=== PATIENT | female | born 2000 | race Caucasian/White ===

== ENCOUNTER 2020-01-17 12:51 | Outpatient (CLI) | payer SELFPAY ==
[2020-01-17 15:05] LABS: HEMATOCRIT 33.8 % (36.0-48.0); HEMOGLOBIN 11.2 g/dL (12-16); MCH 31.3 pg (26.0-34.0); MCHC 33.1 g/dL (31.0-37.0); MCV 94.4 fL (80.0-100.0); PLATELET COUNT 199 10x3/uL (130-400); RBC 3.58 10x6/uL (4.00-5.40); RDW 13.7 % (11.5-14.5)
[2020-01-17 15:06] LABS: WBC 1.6 10x3/uL (4.8-10.8)
[2020-01-17 15:09] LABS: CALC OSMOLALITY 271 mosm/kg (275-300); CALCIUM 8.8 mg/dL (8.5-10.1); CARBON DIOXIDE 23.7 mmol/L (21.0-32.0); CHLORIDE - SERUM 105 mmol/L (98-107); CREATININE - SERUM 0.6 mg/dL (0.6-1.3); GLUCOSE 75 mg/dL (74-106); POTASSIUM - SERUM 3.8 mmol/L (3.5-5.1); SODIUM 138 mmol/L (136-145); UREA NITROGEN 4 mg/dL (7-18); eGFR NON AFRICAN AMERICAN > 90 mL/min (90-120)
[2020-01-17 15:17] LABS: ALBUMIN 2.8 g/dL (3.4-5.0); ALKALINE PHOSPHATASE 105 U/L (30-120); ALT (SGPT) 21 U/L (10-68); BILIRUBIN - DIRECT 0.08 mg/dL (0.00-0.30); BILIRUBIN - INDIRECT 0.13 mg/dL (0.00-1.00); BILIRUBIN - TOTAL 0.21 mg/dL (0.2-1.3); PROTEIN - SERUM 7.2 g/dL (6.4-8.2); URIC ACID 3.7 mg/dL (2.6-7.2)
[2020-01-17 15:53] LABS: EOSINOPHILS 5 % (0-7); LYMPHOCYTES 64 % (15-50); MONOCYTES 6 % (2-11); NEUTROPHILS 26 % (40-80); PLATELET ESTIMATE NORMAL
== END 2020-01-17 15:30 | disposition home or self-care (01) ==
LOC: D.LDO 12:51
PROVIDERS: ATTEND Obstetrics & Gynecology
DX: O26.893 Other specified pregnancy related conditions, third trimester (principal); Z3A.31 31 weeks gestation of pregnancy; R03.0 Elevated blood-pressure reading, without diagnosis of hypertension

== ENCOUNTER 2020-03-19 19:43 | Inpatient (IN) | payer MEDICAID ==
[~2020-03-19] VITALS: Ht 165.1 cm; Wt 114.3 kg
[2020-03-19 20:04] VITALS: BP 120/72; BMI 42.0
[2020-03-19 20:25] LABS: HEMATOCRIT 34.7 % (36.0-48.0); HEMOGLOBIN 11.8 g/dL (12-16); MCH 31.6 pg (26.0-34.0); MCV 92.8 fL (80.0-100.0); MEAN PLATELET VOLUME 11.6 fL (7.4-10.4); RBC 3.74 10x6/uL (4.00-5.40); RDW 13.2 % (11.5-14.5); WBC 2.3 10x3/uL (4.8-10.8)
[2020-03-19 20:55] LABS: BILIRUBIN NEGATIVE (NEGATIVE); KETONE NEGATIVE (NEGATIVE); NITRITE NEGATIVE (NEGATIVE); UROBILINOGEN NORMAL (NORMAL)
[2020-03-19 22:33] LABS: UDS - AMPHET NEGATIVE QUAL (NEGATIVE); UDS - BARB NEGATIVE QUAL (NEGATIVE); UDS - COCAINE NEGATIVE QUAL (NEGATIVE); UDS - OPIATE NEGATIVE QUAL (NEGATIVE); UDS - PCP NEGATIVE QUAL (NEGATIVE); UDS - THC POSITIVE QUAL (NEGATIVE)
[2020-03-19 22:36] LABS: UDS - BENZO NEGATIVE QUAL (NEGATIVE)
[2020-03-20] VITALS (8 sets, daily range): BP systolic 101–121; BP diastolic 46–67
--- NOTE | 2020-03-20 19:26 | NUR ---
RECEIVED PT VIA BED FROM RR, PT TO ROOM 1223, IV IN LEFT HAND INTACT WITH NO REDNESS OR EDEMA, NS WITH PITOCIN TO PUMP INFUSING AT 1258 ML/HR PER MD ORDERS, SEE TYREE, FF, ML, U/1, LITE TO MOD BLEEDING NOTED WITH NO CLOTS, WHITE CHUX AND VINNY PAD CHANGED, BIKINI LINE INC WITH SMALL PRIMAPORE DRESSING CDI WITH NO DRAINAGE NOTED, ICE PACK TO INC, ARAUJO CATH INTACT DRAINING DARK YELLOW URINE, EMPTIED 800 MLS FROM ARAUJO, SCD'S APPLIED AND WORKING PROPERLY, PT RATES PAIN 7/10, WILL ADM PAIN MED, PT ORIENTED TO ROOM, BED IN LOW POSITION, SIDE RAIL X 2, CALL LIGHT IN REACH, INFANT TO ROOM VIA OPEN CRIB CART PER NSY NURSE
--- NOTE | 2020-03-20 20:03 | NUR ---
ADM LIANNE MENDOZA PER MD ORDERS, SEE EMAR
--- NOTE | 2020-03-20 20:10 | NUR ---
PT REQUESTED AND SERVED LEMON [place] SODA AND CHICKEN BROTH
--- NOTE | 2020-03-20 21:30 | NUR ---
PT RESTING, AROUSES TO OPENING OF DOOR, LITE BLEEDING NOTED WITH NO CLOTS, VINNY PAD CHANGED, PT REQUESTED AND SERVED FRESH LEMON [place] SODA, DENIES FURTHER NEEDS
--- NOTE | 2020-03-20 22:35 | NUR ---
PT RESTING, AROUSES TO OPENING OF DOOR, EMPTIED 175 MLS OF DARK YELLOW URINE FROM ARAUJO CHAMBER TO ARAUJO BAG, PT INFORMED WHEN PAIN MEDICINE WAS DUE, PT VERBALIZES UNDERSTANDING, STATES "I'M JUST GRIS SORE, BUT, IT'S STARTING TO HURT JUST A LITTLE", PT DENIES NEEDS AT THIS TIME, SCD'S CONTINUE ON AND WORKING PROPERLY
--- NOTE | 2020-03-20 23:30 | NUR ---
LAST SET OF VS OBTAINED, INFORMED PT THAT I WILL BE BACK IN AROUND MIDNIGHT TO ADM PAIN MED AND DO VINNY CARE, PT VERBALIZES UNDERSTANDING, DENIES NEEDS AT THIS TIME
--- NOTE | 2020-03-21 | NUR ---
INFANT TO THE Y
--- NOTE | 2020-03-21 00:12 | NUR ---
PT AWAKE, VINNY CARE DONE WITH WET WARM WASH CLOTHS, LITE BLEEDING NOTED WITH NO CLOTS, WHITE CHUX AND VINNY PAD CHANGED, EMPTIED 350 MLS FROM ARAUJO, PT DID I.S. WITH GOOD EFFORT, ADM LIANNE MENDOZA PER MD ORDERS, SEE ORDERS, PT INST TO DRINK PLENTY OF FLUIDS, FRESH H20 SERVED, SCD'S CONTINUE ON AND WORKING PROPERLY, PT DENIES NEEDS, PT'S MOM BACK TO ROOM
--- NOTE | 2020-03-21 00:20 | NUR ---
INFANT TO ROOM WITH MOM AND GRANDMOTHER, ID BAND VERIFIED, NO PROBLEMS NOTED.
--- NOTE | 2020-03-21 00:56 | NUR ---
PT AWAKE, ADM TORADOL SIVP PER MD ORDERS, SEE EMAR, PT INST TO DRINK PLENTY OF FLUIDS, PT VERBALIZES UNDERSTANDING, DENIES NEEDS AT THIS TIME, INFANT IN OPEN CRIB CART AND PT'S MOM ASLEEP AT BEDSIDE
--- NOTE | 2020-03-21 02:00 | NUR ---
PT AWAKE, HOLDING INFANT, REPORTS PAIN IS "BETTER", RATES 3/10, DENIES NEEDS, PT'S MOM AT BEDSIDE
[2020-03-21 04:15] VITALS: BP 90/52
--- NOTE | 2020-03-21 04:15 | NUR ---
PT AWAKE, VS OBTAINED, I&O'S COLLECTED, PT CLEANED UP WITH WET WARM WASH CLOTHS, WHITE CHUX AND VINNY PAD CHANGED, LITE BLEEDING WITH ONE 1/2 DOLLAR SIZE CLOT, FF, ML, U/1, FRESH ICE PACK TO ABD, PT C/O INC PAIN, INFORMED PT THAT I WILL START PO PAIN MED, PT VERBALIZES UNDERSTANDING, SCD'S CONTINUE ON AND WORKING PROPERLY, PT'S MOM AT BEDSIDE HOLDING INFANT AT THIS TIME
--- NOTE | 2020-03-21 04:30 | NUR ---
ADM PERCOCET PO PER MD ORDERS, SEE EMAR, REQUESTED AND SERVED GINA, DENIES FURTHER NEEDS AT THIS TIME
--- NOTE | 2020-03-21 06:12 | NUR ---
PT HOLDING INFANT, RATES PAIN 12/20, STATES "I'M NOT SURE IF IT'S ANY BETTER", INFORMED PT THAT THE TORADOL WILL BE DUE AROUND 7AM AND THAT THE PERCOCET WILL BE DUE AROUND 8:30, PT VERBALIZES UNDERSTANDING, DENIES NEEDS AT THIS TIME, PT'S MOM AT BEDSIDE
--- NOTE | 2020-03-21 06:40 | NUR ---
DR NICHOLSON ON UNIT, ORDERS TO SALINE LOCK IV, REMOVE ARAUJO, MAY SHOWER, REGULAR DIET, AND AMBULATE
[2020-03-21 06:46] LABS: HEMATOCRIT 29.6 % (36.0-48.0); HEMOGLOBIN 9.7 g/dL (12-16); MCH 30.5 pg (26.0-34.0); MCHC 32.8 g/dL (31.0-37.0); MCV 93.1 fL (80.0-100.0); MEAN PLATELET VOLUME 11.4 fL (7.4-10.4); RBC 3.18 10x6/uL (4.00-5.40); RDW 13.2 % (11.5-14.5)
--- NOTE | 2020-03-21 06:59 | NUR ---
IV FINISHED INFUSING, IV CONVERTED TO SALINE LOCK, PT'S MOM REPORTS THAT PT FEELS "WARM", TEMP OBTAINED, SEE FLOW SHEET, RENITA MARTIN RN WILL NOTIFY DR NICHOLSON
--- NOTE | 2020-03-21 07:05 | NUR ---
REPORT RECEIVED FROM Derik ROWLAND RN.
--- NOTE | 2020-03-21 07:06 | NUR ---
DR NICHOLSON ON UNIT, REPORT OF PT'S TEMP, ORDERS TO RECHECK TEMP IN 2 HOURS, AMB, AND CONTINUE I.S.
[2020-03-21 07:16] LABS: RAPID PLASMA REAGIN Non Reactive (Non Reactive)
[2020-03-21 07:17] LABS: WBC 1.9 10x3/uL (4.8-10.8)
[2020-03-21 08:00] VITALS: BP 118/64
--- NOTE | 2020-03-21 08:35 | NUR ---
PT REQUEST PAIN MEDICATION. PRN PO MED AND SCHEDULED TORADOL GIVEN. ARAUJO CATHETER D/C'D. ENCOURAGED PT TO CONTINUE TO USE INCENTIVE SPIROMETER 1-2X PER HOUR, 3-5 BREATHS EACH SESSION. PLANT TO GET PT UP TO SHOWER AFTER PAIN MEDS TAKE EFFECT.
--- NOTE | 2020-03-21 09:01 | NUR ---
DR. NICHOLSON NOTIFIED OF TEMP. ORDERS RECEIVED.
--- NOTE | 2020-03-21 10:39 | NUR ---
IVAB INFUSED. IV FLUSHED WITHOUT DIFFICULTY AND SALINE LOCKED. VINNY CARE DONE; PAD CHANGED. NON-SKID SOCKS PLACED. PT STOOD AT SIDE OF BED. NO DIZZINESS OR LIGHTHEADEDNESS NOTED. STATES DOES NOT NEED TO VOID AT THIS TIME. AMBULATED IN ROOM WITHOUT DIFFICULTY. PT SITTING UP IN CHAIR AT BEDSIDE WITH INFANT IN OPEN CRIB, SLEEPING. CALL LIGHT IN REACH. PT STATES SHE WOULD LIKE TO WAIT UNTIL HER MOTHER GETS HERE TO SHOWER. NO OTHER NEEDS OR CONCERNS VOICED AT THIS TIME.
--- NOTE | 2020-03-21 11:34 | NUR ---
PT UP TO BATHROOM. VOIDED WITHOUT DIFFICULTY; HAT WAS NOT IN TOILLET, SO VOID WAS NOT MEASURED. PT STATES SHE HAD NO DIFFICULTY EMPTYING HER BLADDER. HAT IN PLACE TO MEASURE NEXT VOIDS. VINNY CARE DONE; PANTIES AND PAD IN PLACE.
--- NOTE | 2020-03-21 13:30 | NUR ---
PT UP TO SHOWER. MOTHER AT BEDSIDE.
--- NOTE | 2020-03-21 13:50 | NUR ---
PT OUT OF SHOWER. IV SITE WET (WAS COVERED WITH GLOVE AND TAPED), CATHETER UNSECURED. ATTEMTPED TO FLUSH SITE; SITE INFILITRATED. IV D/C'D. PRESSURE AND BANDAGE APPLIED.
[2020-03-21 14:31] VITALS: BP 114/69
--- NOTE | 2020-03-21 14:34 | NUR ---
PT REQUESTS PAIN MED. PAIN MED GIVEN. PT STATES SHE IS COLD. EXTRA BLANKET GIVEN.
[2020-03-21 16:25] VITALS: BP 112/61
--- NOTE | 2020-03-21 16:25 | NUR ---
TO ROOM FOR VS. PT SLEEPING; AWAKENS EASILY TO VOICE/NAME. PT STATES PERCOCET 'JUST MAKES ME LOOPY. IT DOESN'T HELP THE PAIN AT ALL'. TEMP AND PULSE ELEVATED.
--- NOTE | 2020-03-21 16:29 | NUR ---
DR NICHOLSON NOTIFIED OF PT TEMP OF 103.1. STATES HE WILL ORDER UA AND CHEST XRAY, AND TO CONTINUE ANTIBIOTICS ORDERED.
--- NOTE | 2020-03-21 16:55 | NUR ---
PT UP TO BR TO VOID, REQUESTING TORADOL. WILL ATTEMPT TO START NEW IV AND ADMIN, LAST DOSE UNABLE TO ADMIN DUE TO LOSS OF IV ACCESS.
--- NOTE | 2020-03-21 17:00 | NUR ---
IV STARTED IN RIGHT AC X 1 ATTEMPT WITH 18G BY Cleo GILL RN. IV SECURED WITH TEGADERM AND TAPE. SITE DATED.
--- NOTE | 2020-03-21 17:25 | NUR ---
DR. NICHOLSON IN TO SEE PT. NO NEW ORDERS AT THIS TIME.
--- NOTE | 2020-03-21 17:55 | NUR ---
IVAB COMPLETE. IV OF NS REMAINS AT 50CC/HR TO MAINTAIN PATENCY OF LINE FOR ANTIBIOTICS.
[2020-03-21 20:25] VITALS: BP 117/66
--- NOTE | 2020-03-21 20:25 | NUR ---
ASSESSMENT COMPLETE PER FLOWSHEET, HEART RATE ELEVATED AND NOTED, TEMP IS BEING MONITORED, PT RESTING IN BED, WITH IV RUNNING AT KVO, WILL MONITOR.
--- NOTE | 2020-03-21 20:26 | NUR ---
LATE ENTRY WITH ASSESSMENT: RED AREA NOTED JUST UNDER INCISION SITE
--- NOTE | 2020-03-21 21:44 | NUR ---
PT IN BED C/O PAIN, PAIN MED GIVEN.
--- NOTE | 2020-03-21 22:00 | NUR ---
PT STATES FEELING HOT, REQUEST FOR TEMP TO BE TAKEN, TEMP 103.2, ORDERS FOLLOWED FOR TEMP SPIKE.
--- NOTE | 2020-03-21 22:35 | NUR ---
TO PT ROOM WITH L & D AND WOMEN SERVICE NURSE TO EVALUTE RED AREA UNDER INCSION SITE, AREA MARKED OFF WITH A MARKER, DOES NOT APPEAR TO BE ANY LARGER THAN AT EARLIER ASSESSMENT, WILL MONITOR.
[2020-03-21 23:15] VITALS: BP 115/63
--- NOTE | 2020-03-21 23:15 | NUR ---
Q4 VS OBTAINED, TEMP 102.3, ICE PACK APPLIED UNDER PT ARMS, BLANKETS REMOVED, PT COVERED WITH THIN SHEET, APPLE JUICE GIVEN TO PT, IV ANTIBIOTICS GIVEN, IV SITE CHECKED NO PROBLEMS NOTED, WILL MONITOR.
[2020-03-21 23:58] LABS: BILIRUBIN NEGATIVE (NEGATIVE); KETONE NEGATIVE (NEGATIVE); NITRITE NEGATIVE (NEGATIVE); UROBILINOGEN NORMAL (NORMAL)
[2020-03-21 23:59] LABS: BACTERIA FEW /hpf (NONE SEEN); EPITHELIAL CELLS 0-5 /hpf (0-5); WHITE CELLS - URINE NSEEN /hpf (0-5)
--- NOTE | 2020-03-22 00:07 | NUR ---
PT RESTING IN BED, TORADOL GIVEN, WILL MONITOR.
--- NOTE | 2020-03-22 00:52 | NUR ---
PT RESTING QUIETLY IN BED, VSS, NO NEW PROBLEMS NOTED, TEMP 99.7, IV INFUSINGWITH NO PROBLEMS, NO SWELLING OR REDNESS NOTED, ANTIBIOTICS STARTED, WILL MONITOR
--- NOTE | 2020-03-22 01:11 | NUR ---
PT RESTING IN BED, TEMP CHECK 102.4, TYLENOL GIVEN, WILL MONITOR.
--- NOTE | 2020-03-22 02:10 | NUR ---
DR Reyes ON UNIT, REPORT OF TEMP, UA, CHEST X-RAY, LAB WORK, SLIGHT REDNESS BELOW INC, AND MEDS ADM, DR Reyes, THIS RN, AND KRYSTINA LEON, RN TO ROOM, DR Reyes EVALUATES SLIGHT REDNESS
--- NOTE | 2020-03-22 03:16 | NUR ---
ROOM CHECK COMPLETE, MOM SITTING UP ON SIDE OF BED FEEDING , WILL MONITOR.
--- NOTE | 2020-03-22 04:15 | NUR ---
HELPED MOM CHANGE INFANT DIAPER, EDUCATION PROVIDED ABOUT INFANT VAGINAL DISCHARGE, UNDERSTANDING STATED.
[2020-03-22 05:27] VITALS: BP 116/61
--- NOTE | 2020-03-22 07:15 | NUR ---
RECEIVED PT SITTNG UP IN BED. AWAKE. VSS. HRRR WITHOUT AUDIBLE MURMUR. BBS CLEAR. BS X 4. ABDOMEN SOFT/NON-DISTENDED. PT STATES PASSING GAS. NO BM YET. ABDOMINAL INCISION WITH DERMABOND. REDNESS NOTED BELOW INCISION/MONS AREA. AREA NON-TENDER TO TOUCH. FUNDUS FIRM AT U/U. RUBRA LOCHIA SMALL AMT. NO CLOTS NOTED. NEG HOMANS' SIGN. PPP. MILD, NON-PITTING EDEMA NOTED TO BLE. SL TO RIGHT AC. SITE CLEAR. PT C/O INCISIONAL PAIN OF "5" ON 0-10 PAIN SCALE. SR UP X 2. CALL LIGHT IN REACH. FRESH ICE WATER PROVIDED TO PT.
--- NOTE | 2020-03-22 07:25 | NUR ---
PERCOCET 10/325 AND TYLENOL 650 MG GIVEN PO ORDERED. PT INSTRUCTED ON MED. VERBALIZES UNDERSTANDING.
[2020-03-22 07:30] VITALS: BP 111/51
--- NOTE | 2020-03-22 08:04 | NUR ---
DR NICHOLSON VISITS WITH PT. NOTIFIED OF PT TEMPS THROUGH NIGHT AND REDNESS TO MONS/BELOW INCISION.
--- NOTE | 2020-03-22 08:15 | NUR ---
TEMP RE-CHECKED AND NOTED. DR NICHOLSON NOTIFIED.
--- NOTE | 2020-03-22 08:23 | NUR ---
PT AMBULATORY IN HALLS.
--- NOTE | 2020-03-22 09:32 | NUR ---
SL FLUSHES EASILY WITH 10 ML NS. SITE CLEAR. AMPICILLIN 2 GRAMS STARTED IVPB. PT INSTRUCTED ON MED. VERBALIZES UNDERSTANDING.
--- NOTE | 2020-03-22 10:15 | NUR ---
AMPICILLIN COMPLETED. LINE FLUSHED WITH NS. GENTAMYCIN 180 MG STARTED IVPB VIA ALARIS PUMP. PT INSTRUCTED ON MED. VERBALIZES UNDERSTANDING.
--- NOTE | 2020-03-22 11:30 | NUR ---
GENTAMYCIN COMPLETED. LINE FLUSHED WITH NS. CLINDAMYCIN 900 MG STARTED IVPB VIA ALARIS PUMP. PIV SITE CLEAR. PT TOLERATING WELL.
--- NOTE | 2020-03-22 11:38 | NUR ---
PT C/O INCISIONAL PAIN/CRAMPING OF "6" ON 0-10 PAIN SCALE. PERCOCET 10/325 AND TORADOL 10 MG GIVEN PO ORDERED. PT INSTRUCTED ON MEDS. VERBALIZES UNDERSTANDING.
[2020-03-22 11:42] VITALS: BP 114/72
--- NOTE | 2020-03-22 12:10 | NUR ---
CLINDAMYCIN COMPLETED. PIV CONVERTED TO SALINE LOCK. FLUSHES EASILY WITH 10 ML NS. SITE CLEAR. PT TANIA WELL.
--- NOTE | 2020-03-22 13:49 | NUR ---
PT SITTING UP IN CHAIR. PT REQUESTS AND RECEIVES PERIPADS AND PANTIES. DENIES PAIN OR NEEDS.
--- NOTE | 2020-03-22 15:45 | NUR ---
SL TO LEFT AC INFILTRATED WITH FLUSH. DC'D WITH CATHELON INTACT. PRESSURE BANDAGE TO SITE. SL RESITED TO LEFT HAND X 1 VENIPUNCTURE WITH 20 GAUGE CATHELON. FLUSHES EASILY. SITE CLEAR. AMPICILLIN 2 GRAMS UP VIA ALARIS PUMP. SITE CLEAR.
[2020-03-22 16:10] VITALS: BP 107/69
--- NOTE | 2020-03-22 16:18 | NUR ---
PT C/O INCISIONAL PAIN OF "5" ON 0-10 PAIN SCALE. PERCOCET 10/325 AND TYLENOL 650 MG GIVEN PO ORDERED. PT INCISION WITH SLIGHT REDNESS NOTED ABOVE INCISION. NO REDNESS NOTED BELOW INCISION. INCISION WELL APPROXIMATED WITHOUT DRAINAGE NOTED. MILD EDEMA NOTED TO AREA.
--- NOTE | 2020-03-22 17:45 | NUR ---
PT TRANSFERED VIA AMBULATORY TO ROOM 1276. PT ORIENTED TO ROOM, BED, AND CALL LIGHT. C/O ABDOMINAL PAIN OF "5-6" ON 0-10 PAIN SCALE. TORADOL 10 MG GIVEN PO ORDERED. PT SITS ON COUCH TO FEED INFANT.
--- NOTE | 2020-03-22 19:11 | NUR ---
TO ROOM TO MEET PT WITH DAY SHIFT
[2020-03-22 19:30] VITALS: BP 112/52
--- NOTE | 2020-03-22 20:56 | NUR ---
ASSESSMENT COMPLETE PER FLOWSHEET, VSS, NO PROBLEMS NOTED, WILL MONTIOR.
--- NOTE | 2020-03-22 21:45 | NUR ---
IN ROOM TO ADMINISTER MEDICATION, PT SITTING UP IN BED EATING, NO PROBLEMS NOTED, WILL NEOIOR.
--- NOTE | 2020-03-22 22:45 | NUR ---
ROOM CHECK COMPLETE, PT RESTING IN BED, NO PROBLEMS NOTED, WILL MONITOR.
[2020-03-22 23:20] VITALS: BP 111/65
--- NOTE | 2020-03-22 23:20 | NUR ---
TO ROOM TO NORMALIZE PT FROM POST OP C-SEC, MORPHINE OFFICE CLIN ASST REMOVED AND MED WASTED, IV SALINE LOCKED, ARAUJO DC'D CATH INTACT, PT TOLERATED WELL, URINE WAS SAMAN COLORED, WILL MONITOR.
[2020-03-23] VITALS (20 sets, daily range): BP systolic 106–150; BP diastolic 53–85; Ht 165.1 cm; Wt 114.3 kg
--- NOTE | 2020-03-23 | NUR ---
TO PT ROOM FOR VS CHECK AND GIVE MEDS, TEMP ELEVATED AT 102.1, TORADOL AND PERCET GIVEN FOR PAIN WILL MONITOR.
--- NOTE | 2020-03-23 00:33 | NUR ---
DR BROUSSARD CALLED AND ELEVATED TEMPERATURE REPORTED. NEW ORDERS NOTED FOR A CBC STAT AND TO RECHECK TEMPERATURE IN ONE HOUR FROM PERCOCET ADMINISTRATION.
--- NOTE | 2020-03-23 01:11 | NUR ---
TEMP RECHECK, TEMP 99.4
[2020-03-23 01:19] LABS: HEMATOCRIT 26.4 % (36.0-48.0); HEMOGLOBIN 8.8 g/dL (12-16); MCH 30.9 pg (26.0-34.0); MCHC 33.3 g/dL (31.0-37.0); MCV 92.6 fL (80.0-100.0); MEAN PLATELET VOLUME 10.7 fL (7.4-10.4); PLATELET COUNT 179 10x3/uL (130-400); RBC 2.85 10x6/uL (4.00-5.40); RDW 13.2 % (11.5-14.5)
[2020-03-23 01:20] LABS: WBC 2.9 10x3/uL (4.8-10.8)
--- NOTE | 2020-03-23 01:45 | NUR ---
ROOM CHECK, PT AWAKE, RESTING QUIETLY IN BED, PT DENIES ANY NEEDS AT THIS TIME.
--- NOTE | 2020-03-23 01:46 | NUR ---
IV SITE FLUSHED WITH NO PROBLEMS, NO REDNESS OR SWELLING NOTED TO IV SITE, ANTIBIOTICS STARTED.
[2020-03-23 01:52] LABS: EOSINOPHILS 2 % (0-7); LYMPHOCYTES 54 % (15-50); MONOCYTES 18 % (2-11); NEUTROPHILS 16 % (40-80); PLATELET ESTIMATE DECREASED
--- NOTE | 2020-03-23 04:00 | NUR ---
PT RESTING IN BED, VSS, NO PROBLEMS NOTED, IV ANTIBIOTICS RUNNING WITH NO PROBLEM, NO SWELLING OR REDNESS NOTED TO IV SITE, WILL MONITOR.
--- NOTE | 2020-03-23 06:08 | NUR ---
PT ALSEEP, NO PROBLEMS NOTED
--- NOTE | 2020-03-23 08:00 | NUR ---
am assessment completed, see flow sheet. fundus firm, u/1, small rubra lochia. abdomen palpates soft, tenderness noted to incisional site. incision intact, dermabond noted, no swelling noted to incisional site. pt denies sob, pain, difficulty breathing. vs taken, temp noted to be 100.4 oral. srup x 2, call light and phone within reach.
--- NOTE | 2020-03-23 11:45 | NUR ---
dietary serves lunch tray. large ice water served. pt denies all other needs. srup x2, call light and phone within reach.
--- NOTE | 2020-03-23 12:00 | NUR ---
pt to ct by wheelchair, with iv infusing ns at kvo rate.
--- NOTE | 2020-03-23 12:28 | NUR ---
pt returned from ct by wheelchair.
--- NOTE | 2020-03-23 14:15 | NUR ---
dr. khan on unit, to room to speak with pt regarding plan of care, has reviewed vs, labwork, plans to infuse 2 units prbc's and continue antibiotics, plan for pt to be afrebile x 24 hours. pt agrees with plan of care. sr up x 2, call light and phone within reach.
--- NOTE | 2020-03-23 14:15 | NUR ---
dr. khan calls to unit, md has reviewed ct results, vs graph, and lab work. md will continue with current plan of care to continue abx, will infuse 2 units prbc's.
--- NOTE | 2020-03-23 18:15 | NUR ---
attempts to start iv for blood adm, x2, without success. pt discussing not having blood adm at all, states she will decide a little later. large glass of ice water served to pt. srup x2, call light and phone within reach.
--- NOTE | 2020-03-23 19:00 | NUR ---
REPORT GIVEN TO 7 P SHIFT.
--- NOTE | 2020-03-23 19:20 | NUR ---
INTRODUCED MYSELF TO PT TO LET HER KNOW THAT I WOULD BE HER NURSE KAVITA. PT IS LAYING IN BED WITHOUT C/O. EXPLAINED THAT BLOOD WOULD BE STARTED SOON.
[2020-03-24] VITALS: BP 145/82
[2020-03-24 00:10] VITALS: BP 141/102
--- NOTE | 2020-03-24 00:14 | NUR ---
BLOOD TRANSFUSION COMPLETE. SECOND IV IN RIGHT HAND DC'D WITH CATHLON INTACT.
[2020-03-24 00:40] VITALS: BP 116/73
--- NOTE | 2020-03-24 04:00 | NUR ---
PT IS RESTING QUIETLY WITH HER EYES CLOSED. RESPIRATIONS EVEN AND UNLABORED. THIS IS THE FIRST TIME I'VE SEEN THIS PT SLEEP ALL NIGHT.
--- NOTE | 2020-03-24 06:26 | NUR ---
RESTING QUIETLY WITHOUT C/O
--- NOTE | 2020-03-24 07:30 | NUR ---
DR NICHOLSON AT BEDSIDE TALKING TO PT ABOUT CONTINUE PLAN OF CARE TO INCLUDE POSSIBLE DISCHARGE IF TEMP REMAINS 99.5 OR BELOW X 24 HOURS. AM ASSESSMENT COMPLETED AT THIS TIME, IV TO LEFT HAND LEAKING AND WHEN CLEAR DRESSING IS REMOVED IV CATH IS NO LONGER IN PLACE. NO SWELLING OR REDNESS NOTED AND PT DENIES PAIN WITH TOUCH. AFTER REVIEWING EMAR DR NICHOLSON GIVES ORDERS TO GIVE GENT 120MG IM X 1, DO NOT RESTART IV UNLESS PT BEGINS TO RUN TEMP AGAIN AT WHICH POINT ANTIBIOTICS ARE TO BE RESTARTED. FUNDUS FIRM AT U/U WITH LIGHT BLEEDING NOTED, BIKINI INCISION CLEAN AND DRY. PT STATES HER UNDERSTANDING TO PLAN OF CARE AND DENIES QUESTIONS OR CONCERNS. INFANT IN CRIB AT BEDSIDE AND PT MOTHER IS PRESENT, SIDE RAILS UP X 2 WITH PHONE AND CALL LIGHT IN REACH.
[2020-03-24 07:36] VITALS: BP 123/75
--- NOTE | 2020-03-24 08:09 | NUR ---
RATES PAIN AT 5/10, MEDS GIVEN SCANNED TO EMAR. LARGE ICE WATER ALSO PROVIDED AT THIS TIME REQUESTED BY PT.
[2020-03-24 08:17] LABS: BASOPHILS 0.8 % (0-2); EOSINOPHILS 1.4 % (0-7); HEMATOCRIT 31.3 % (36.0-48.0); HEMOGLOBIN 10.5 g/dL (12-16); IMMATURE GRANULOCYTES 0.5 % (0-5); LYMPHOCYTES 28.9 % (15-50); MCH 30.6 pg (26.0-34.0); MCHC 33.5 g/dL (31.0-37.0); MCV 91.3 fL (80.0-100.0); MEAN PLATELET VOLUME 10.3 fL (7.4-10.4); MONOCYTES 20.8 % (2-11); NEUTROPHILS 47.6 % (40-80); PLATELET COUNT 203 10x3/uL (130-400); RDW 13.7 % (11.5-14.5)
[2020-03-24 08:35] LABS: RBC 3.43 10x6/uL (4.00-5.40); WBC 3.7 10x3/uL (4.8-10.8)
--- NOTE | 2020-03-24 08:45 | NUR ---
PAIN REASSESSMENT, RATES AT 2/10. INFANT IN CRIB AT BEDSIDE, ENCOURAGED PT TO TRY AND GET SOME REST. CALL LIGHT IN REACH WITH SIDE RAILS UP X 2.
--- NOTE | 2020-03-24 10:02 | NUR ---
LARGE ICE WATER REQUESTED. TEMP 98.9 ORALLY. NO OTHER NEEDS AT THIS TIME. CALL LIGHT IN REACH.
[2020-03-24 12:00] VITALS: BP 121/75
--- NOTE | 2020-03-24 12:30 | NUR ---
VSS WITH TEMP OF 98.3 ORALLY. GENT 120MG GIVEN IM SCANNED TO EMAR. PT UNERSTANDS THAT DISCHARGE PAPERWORK/TEACHING WOULD BE PREPARED BUT STILL WAITING FOR PEDI TO COME DISCHARGE INFANT.
[2020-03-24] MEDS ORDERED: PERCOCET 7.5/321 TAB PO (12:52)
[2020-03-24] MEDS ORDERED: MOTRIN600 MG PO (12:53)
--- NOTE | 2020-03-24 13:30 | NUR ---
VERBAL AND WRITTEN DISCHARGE INSTRUCTIONS/TEACHING PER THIS RN, PT STATES HER UNDERSTANDING AND DENIES QUESTIONS. PT AND HER MOTHER REPEAT TEACHING ABOUT HER TEMP NOT BEING GREATER THAN 99.[address] TO CONTACT DR NICHOLSON IF THIS SHOULD HAPPEN. WRITTEN SCRIPTS GIVEN FOR PERCOCET 7.5MG AND MORTRIN 800MG, SHE VOICES HER UNDERSTANDING ON HOW AND WHEN TO TAKE. RATES PAIN AT 3/10 AT THIS TIME. NURSERY NURSE NOTIFIED THAT PT DISCHARGE TEACHING COMPLETED.
--- NOTE | 2020-03-24 15:07 | NUR ---
INFANT DISCHARGED AND SECURED INTO CARRIER. TAKEN OUT BY WHEELCHAIR WITH INFANT, HOME BY PRIVATE CAR WITH FAMILY.
--- NOTE | 2020-03-26 10:21 | MORECARE ---
CASE MANAGEMENT DISCHARGE SUMMARY PATIENT: MICHEAL STAFFORD UNIT: [id number] ADM DATE: 03/19/20 AGE: 19 : 98 SEX: F ROOM/BED: D.1276 AUTHOR: DARIUSZ HAWKINS PHYSICIAN: REFERRING PHYSICIAN: VINOD NICHOLSON MD DATE OF SERVICE: 03/26/20 Discharge Plan Patient Name: MICHEAL STAFFORD Facility: [facility]:[place] : 2000 Planned Disposition: Home Anticipated Discharge Date: 03/24/20 Discharge Date: 03/24/2020 Expected LOS: 5 Initial Reviewer: [email or web address] Initial Review Date: 03/19/2020 Generated: 03/26/20 11:20 am Patient Name: MICHEAL STAFFORD Page [phone] at 1021 All edits/amendments must be made on the electronic document DICTATION DATE: 03/26/20 1020 PLANER SETUP OPERATOR: MIKAYLA 03/26/20 1020 RPT#: [id number] DC DATE:03/24/20 STATUS: DIS IN [facility] [address] [place] [address] END OF REPORT
== END 2020-03-24 15:10 | disposition home or self-care (01) | DRG 788 ==
LOC: D.WS 19:43 → D.LD 19:43 → D.WS 03-20 19:26 → D.LD 03-22 18:31
PROVIDERS: Emergency Medicine; Student in an Organized Health Care Education/Training Program; ADMIT Obstetrics & Gynecology; ATTEND Obstetrics & Gynecology
PROC: 10D00Z1 Extraction of Products of Conception, Low, Open Approach (ICD-10-PCS; principal; 2020-03-20 16:30)
DX: O99.824 Streptococcus B carrier state complicating childbirth (principal); Z3A.39 39 weeks gestation of pregnancy; O77.0 Labor and delivery complicated by meconium in amniotic fluid; O62.1 Secondary uterine inertia; O90.81 Anemia of the puerperium; D64.9 Anemia, unspecified; O86.12 Endometritis following delivery; Z87.891 Personal history of nicotine dependence

== ENCOUNTER 2020-03-29 09:04 | Day surgery (SDC) | payer MEDICAID ==
[~2020-03-29] VITALS: Ht 165.1 cm; Wt 112.3 kg
--- NOTE | ~2020-03-29 | OP ---
PATIENT NAME: MICHEAL STAFFORD MEDICAL RECORD: [id number] :[birth year] LOCATION:D.OPS ADMISSION DATE: SURGEON: DAMION NICHOLSON MD DATE OF OPERATION: 03/29/2020 DATE OF SERVICE: 03/29/2020 PREOPERATIVE DIAGNOSIS: Postoperative wound infection. POSTOPERATIVE DIAGNOSIS: Postoperative wound infection. PROCEDURE: Wound exploration. SURGEON: Daimon Nicholson MD CASINO BEVERAGE SERVER: Torres Rush PA-C ANESTHESIA: General. FINDINGS: Serosanguineous and purulent exudate. Minimal necrotic tissue. There is juan-incisional edema and fascia was noted to be intact. SPECIMENS: Wound culture. SPECIMEN DISPOSITION: Lab. ESTIMATED BLOOD LOSS: Minimal. FLUIDS: 1000 cc of lactated Ringer's. URINE OUTPUT: Quantity sufficient void prior to this procedure. COMPLICATIONS: None. INDICATIONS: The patient is a 19-year-old female status post delivery with endometritis. The patient presents to the clinic with wound drainage. The wound is packed and evaluated the following day. Increased erythema and purulent exudate is noted and the patient is consented for wound exploration in the operating room. DESCRIPTION OF PROCEDURE: After informed consent was assured, the patient was taken to the operating room where anesthetic was obtained. The patient was prepped and draped. Inspecting the incision, there was a defect approximately 2 to 2.5 cm right of midline and this was further extended with scalpel cutting a subcuticular stitch. The entire wound was opened and exudative material removed along with necrotic tissue. Debridement was done bluntly and with scalpel. After this had been performed, the incision was pulsed with an antibiotic solution. Packing was now placed. A roll of Kerlix was used with 4 x 4 gauze and abdominal pad. The sponge, lap, and needle counts correct times 2. The patient was awakened and went to the recovery area in stable condition. The patient will remain for dressing change and education on wound care. TRANSINT:[id number] Voice Confirmation ID: [id number] DOCUMENT ID: [id number] OPERATIVE REPORT [id number] MICHEAL STAFFORD DAMION NICHOLSON MD CC: [id number] DICTATION DATE: 04/11/20 0643 BAKERY ASSOCIATE: 04/11/20 1011 [facility] 03/30/20 [place] [address]
[~2020-03-29 09:04] MED LIST: MOTRIN600 MG PO; PERCOCET 7.5/321 TAB PO
[2020-03-29 10:03] LABS: HCG SERUM NEGATIVE (NEGATIVE)
[2020-03-29 10:08] LABS: BASOPHILS 0.6 % (0-2); EOSINOPHILS 0.2 % (0-7); HEMATOCRIT 36.3 % (36.0-48.0); HEMOGLOBIN 11.6 g/dL (12-16); IMMATURE GRANULOCYTES 0.4 % (0-5); LYMPHOCYTES 18.6 % (15-50); MCV 93.8 fL (80.0-100.0); MEAN PLATELET VOLUME 9.6 fL (7.4-10.4); MONOCYTES 11.3 % (2-11); NEUTROPHILS 68.9 % (40-80); RBC 3.87 10x6/uL (4.00-5.40); RDW 13.6 % (11.5-14.5); WBC 4.8 10x3/uL (4.8-10.8)
[2020-03-29 10:17] VITALS: BP 130/66; BMI 41.1
[2020-03-29 10:17] LABS: PLATELET COUNT 282 10x3/uL (130-400)
[2020-03-29 10:18] LABS: HCG URINE NEGATIVE (NEGATIVE)
--- NOTE | 2020-03-29 13:55 | NUR ---
1140 VOIDED UP WITH ASSITANCE. 1355 REPORT GIVEN TO FITO. MOTHER AT BEDSIDE.DENIES PAIN.
--- NOTE | 2020-03-29 14:25 | NUR ---
RECIEVED PT FROM OUTPAITENT. PATIENT REQUESTING TO BE SENT TO MED SURG. SPOKE TO [facility] ([place], [place]). PT TO BE MOVED TO 2204. REPORT CALLED TO CHRIS LAST ON MED SURG. SHE WILL HAVE A FINISHING RANGE FEEDER ASSIST THE PATIENT WITH MOVING ROOMS.
--- NOTE | 2020-03-29 14:35 | NUR ---
MED SURG CONSTRUCTION CONTROLLER HERE TO MOVE PATIENT TO MED SURG. PATIENT DENIES ANY NEEDS.
--- NOTE | 2020-03-29 16:38 | MORECARE ---
CASE MANAGEMENT DISCHARGE SUMMARY PATIENT: MICHEAL STAFFORD UNIT: [id number] ADM DATE: 03/29/20 AGE: 19 : 98 SEX: F ROOM/BED: D.2205 AUTHOR: DARIUSZ HAWKINS PHYSICIAN: REFERRING PHYSICIAN: VINOD NICHOLSON MD DATE OF SERVICE: 03/29/20 Discharge Plan Patient Name: MICHEAL STAFFORD Facility: [facility]:[place] : 2000 Planned Disposition: Home with Home Health Anticipated Discharge Date: 03/30/20 Discharge Date: Expected LOS: 1 Initial Reviewer: [email or web address] Initial Review Date: 03/29/2020 Generated: 03/29/20 5:38 pm External Providers External Provider: [facility] Next Contact Date: Service Request Date: Service Type: Resolution: Reviewer: Comments: Patient Name: MICHEAL STAFFORD Page [phone] at 1638 All edits/amendments must be made on the electronic document DICTATION DATE: 03/29/201637 MAINTENANCE REPAIRER: MIKAYLA 03/29/208 RPT#: [id number] [place] DATE: STATUS: REG [facility] [address] [place] [address] END OF REPORT
--- NOTE | 2020-03-29 17:21 | MORECARE ---
CASE MANAGEMENT DISCHARGE SUMMARY PATIENT: MICHEAL STAFFORD UNIT: [id number] ADM DATE: 03/29/20 AGE: 19 : 98 SEX: F ROOM/BED: D.2205 AUTHOR: DARIUSZ HAWKINS PHYSICIAN: REFERRING PHYSICIAN: VINOD NICHOLSON MD DATE OF SERVICE: 03/29/20 Discharge Plan Patient Name: MICHEAL STAFFORD Facility: [facility]:[place] : 2000 Planned Disposition: Home with Home Health Anticipated Discharge Date: 03/30/20 Discharge Date: Expected LOS: 1 Initial Reviewer: [email or web address] Initial Review Date: 03/29/2020 Generated: 03/29/20 6:20 pm External Providers External Provider: [facility] Next Contact Date: Service Request Date: Service Type: Resolution: Reviewer: Comments: Last DP export: 03/29/20 3:38 p Patient Name: MICHEAL STAFFORD Page [phone] at 1721 All edits/amendments must be made on the electronic document DICTATION DATE: 03/29/201719 GEOTECHNICIAL PROPERTIES TECHNICIAN: MIKAYLA 03/29/201719 RPT#: [id number] DC DATE: STATUS: REG [facility] [address] [place] [address] END OF REPORT
--- NOTE | 2020-03-29 17:28 | MORECARE ---
CASE MANAGEMENT DISCHARGE SUMMARY PATIENT: MICHEAL PENDLETON UNIT: [id number] ADM DATE: 03/29/20 AGE: 19 : 98 SEX: F ROOM/BED: D.2205 AUTHOR: DARIUSZ HAWKINS PHYSICIAN: REFERRING PHYSICIAN: VINOD NICHOLSON MD DATE OF SERVICE: 03/29/20 Discharge Plan Patient Name: MICHEAL PENDLETON Facility: [facility]:[place] : 2000 Planned Disposition: Home with Home Health Anticipated Discharge Date: 03/30/20 Discharge Date: Expected LOS: 1 Initial Reviewer: [email or web address] Initial Review Date: 03/29/2020 Generated: 03/29/20 6:28 pm DCPIA - Discharge Planning Initial Assessment Updated by [email or web address]: Cecelia Frost on 03/29/20 5:26 pm * Is the patient Alert and Oriented? Yes * How many steps to enter\exit or inside your home? * PCP Dr. Miranda * Pharmacy [facility] [address] * Preadmission Environment Home with Family * ADLs Independent * Equipment None * List name and contact numbers for known caregivers / representatives who currently or will assist patient after discharge: Dee Pendleton, mother, * Verbal permission to speak to the caregivers and representatives has been obtained from the patient. Yes * Community resources currently utilized None * Additional services required to return to the preadmission environment? Yes * Can the patient safely return to the preadmission environment? Yes * Has this patient been hospitalized within the prior 30 days at any hospital? Yes Last DP export: 03/29/20 4:21 p Patient Name: MICHEAL PENDLETON Page [id number] at 1728 All edits/amendments must be made on the electronic document DICTATION DATE: 03/29/201727 [employer]ERING TRUCK DRIVER: MIKAYLA 03/29/201727 RPT#: [id number] DC DATE: STATUS: REG [facility] [address] [place] [address] END OF REPORT
--- NOTE | 2020-03-29 17:42 | MORECARE ---
CASE MANAGEMENT DISCHARGE SUMMARY PATIENT: MICHEAL PENDLETON UNIT: [id number] ADM DATE: 03/29/20 AGE: 19 : [birth year] SEX: F ROOM/BED: D.2205 AUTHOR: DARIUSZ HAWKINS PHYSICIAN: REFERRING PHYSICIAN: DAMION NICHOLSON MD DATE OF SERVICE: 03/29/20 Discharge Plan Patient Name: MICHEAL PENDLETON Facility: [facility]:[place] : 2000 Planned Disposition: Home with Home Health Anticipated Discharge Date: 03/30/20 Discharge Date: Expected LOS: 1 Initial Reviewer: [email or web address] Initial Review Date: 03/29/2020 Generated: 03/29/20 6:42 pm Comments DCP- Discharge Planning Updated by [email or web address]: Cecelia Frost on 03/29/20 4:[address] Patient Name: MICHEAL PENDLETON Admission Status: Elective Accout number: [id number] Admission Date: 03-29-2020 : 2000 Admission Diagnosis: Attending: Damion Nicholson Current LOS: 1 Anticipated DC Date: 03-30-2020 Planned Disposition: Home with Home Health Primary Insurance: MEDICAID [place] Discharge Planning Comments: CM met with patient to discuss discharge planning / needs. Dr. Nicholson has ordered Home Health for BID wound care with anticipated discharge to home tomorrow. Patient states her plan is to discharge to home where she lives with her mom and her 16 yo brother. States the home environment is safe. States her mom will transport her home upon discharge. States her mom is willing to learn how to do the wound care. Patient signed FRANKIE for [facility] [facility], [facility], [facility], and [facility]. Denies any other discharge planning needs at this time. CM called and spoke with Nayla at [facility]. Nayla states they are not able to accept patient until Thursday or Thursday. CM called and spoke with Sameer at [facility]. Sameer stated they would not be able to accept patient until Thursday or Thursday. CM called and spoke with Yamileth at [facility]. Yamileth stated they would not be able to accept patient until Thursday. CM called [facility] and spoke with Kenton Vega. Kenton stated he thought agency would be able to admit patient tomorrow afternoon, but he would need to check with Andrea first. CM gave Kenton DUARTE's phone number to call tomorrow morning with confirmation. CM faxed orders and copy of records as requested. CM gave verbal report to GERALD Lemus, for follow up tomorrow in my absence. CM informed patient on status of referral. Patient verbalized understanding. CM will continue to follow and assist as needed with discharge planning needs. Chief Of Surgery: Cecelia Frost DCPIA - Discharge Planning Initial Assessment Updated by [id number]: Cecelia Frost on 03/29/20 5:26 pm * Is the patient Alert and Oriented? Yes * How many steps to enter\exit or inside your home? * PCP Dr. Miranda * Pharmacy [facility] [address] * Preadmission Environment Home with Family * ADLs Independent * Equipment None * List name and contact numbers for known caregivers / representatives who currently or will assist patient after discharge: Dee Pendleton, mother, * Verbal permission to speak to the caregivers and representatives has been obtained from the patient. Yes * Community resources currently utilized None * Additional services required to return to the preadmission environment? Yes * Can the patient safely return to the preadmission environment? Yes * Has this patient been hospitalized within the prior 30 days at any hospital? Yes Coverage Notice Reviewer: [id number] - Cecelia Frost Notice Issued Date-Time: 03/29/2020 16:25 Notice Type: Patient Choice Letter Notice Delivered To: Patient Relationship to Patient: Self Planetarium Sky Show Technician Name: Delivery Method: HAND - Hand Delivered Yi Days: Prior Verbal Notification: Recipient Understood Notice: Yes Recipient Signature: Yes Med Rec Note Co-signed by Attending: Coverage Notice Comment: Last DP export: 03/29/20 4:28 p Patient Name: MICHEAL PENDLETON Page [phone] at 1742 All edits/amendments must be made on the electronic document DICTATION DATE: 03/29/201741 BOTTLE HOUSE CLEANERS SUPERVISOR: MIKAYLA 03/29/201741 RPT#: [id number] IN DATE: STATUS: REG [facility] [address] [place] [address] END OF REPORT
[2020-03-29 20:00] VITALS: BP 112/73
[2020-03-29 20:17] VITALS: Ht 165.1 cm; Wt 112.3 kg
[2020-03-30] VITALS: BP 120/66
--- NOTE | 2020-03-30 02:12 | NUR ---
RESTING WITH NO SIGNS OR SYMPTOMS OF DISTRESS. MOTHER AT BEDSIDE. CPOC.
[2020-03-30 04:00] VITALS: BP 107/58
[2020-03-30 08:51] VITALS: BP 109/68
--- NOTE | 2020-03-30 12:18 | NUR ---
PATIENT IN ROOM. FAMILY MEMBER AT BEDSIDE. DENIES PAIN OR NEEDS. FREE FROM SIGNS OF DISTRESS. WILL CONTINUE TO MONITOR.
[2020-03-30 12:36] VITALS: BP 122/68
--- NOTE | 2020-03-30 13:10 | MORECARE ---
CASE MANAGEMENT DISCHARGE SUMMARY PATIENT: MICHEAL PENDLETON UNIT: [id number] ADM DATE: 03/29/20 AGE: 19 : [birth year] SEX: F ROOM/BED: D.2205 AUTHOR: DARIUSZ HAWKINS PHYSICIAN: REFERRING PHYSICIAN: DAMION NICHOLSON MD DATE OF SERVICE: 03/30/20 Discharge Plan Patient Name: MICHEAL PENDLETON Facility: [facility]:[place] : 2000 Planned Disposition: Home with Home Health Anticipated Discharge Date: 03/30/20 Discharge Date: Expected LOS: 1 Initial Reviewer: [email or web address] Initial Review Date: 03/29/2020 Generated: 03/30/20 2:09 pm Comments DCP- Discharge Planning Updated by [email or web address]: Amalia Acosta on 03/30/20 12:[address] 0830 FLAKO FROM [facility] CALLED THIS AM. THE PATIENT'S INSURANCE CHECK STATES INSURANCE WAS TERMED SINCE JANUARY. TC TO DARA IN [employer]. DARA STATES HE WILL CHECK. HE DID FIND THE INSURANCE TERM. HE WILL CHECK DHS. GERALD SPOKE WITH THE PRIMARY NURSE TO ADVISE OF INSURANCE ISSUE. SHE WILL ADVISE THE PATIENT. 1130 TC TO MED DATA. DARA HAS NOT CLARIFIED AT PRESENT. HE WILL CHECK W/ DHS. 1300 CM SPOKE PERSONALLY TO DARA WITH MED [employer]. HE STILL HAS NOT CLARIFIED THE INSURANCE ISSUE. HE STATES HE WILL FOLLOW UP. DCP- Discharge Planning Updated by [id number]: Cecelia Frost on 03/29/20 4:[address] Patient Name: MICHEAL PENDLETON Admission Status: Elective Accout number: [id number] Admission Date: 03-29-2020 : 2000 Admission Diagnosis: Attending: Damion Nicholson Current LOS: 1 Anticipated DC Date: 03-30-2020 Planned Disposition: Home with Home Health Primary Insurance: MEDICAID [place] Discharge Planning Comments: CM met with patient to discuss discharge planning / needs. Dr. Nicholson has ordered Home Health for BID wound care with anticipated discharge to home tomorrow. Patient states her plan is to discharge to home where she lives with her mom and her 16 yo brother. States the home environment is safe. States her mom will transport her home upon discharge. States her mom is willing to learn how to do the wound care. Patient signed FRANKIE for [facility], [facility], [facility], and [facility]. Denies any other discharge planning needs at this time. CM called and spoke with Nayla at [facility]. Nayla states they are not able to accept patient until Thursday or Thursday. CM called and spoke with Sameer at [facility]. Ray stated they would not be able to accept patient until Thursday or Thursday. CM called and spoke with Yamileth at [facility]. Yamileth stated they would not be able to accept patient until Thursday. CM called [facility] and spoke with Kenton Vega. Kenton stated he thought agency would be able to admit patient tomorrow afternoon, but he would need to check with Flako chavis. CM gave Kenton DUARTE's phone number to call tomorrow morning with confirmation. CM faxed orders and copy of records as requested. CM gave verbal report to GERALD Lemus, for follow up tomorrow in my absence. CM informed patient on status of referral. Patient verbalized understanding. CM will continue to follow and assist as needed with discharge planning needs. Lead Informatica Developer: Cecelia Frost DCPROMISEA - Discharge Planning Initial Assessment Updated by [id number]: Cecelia Frost on 03/29/20 5:26 pm * Is the patient Alert and Oriented? Yes * How many steps to enter\exit or inside your home? * PCP Dr. Miranda * Pharmacy [facility] [address] * Preadmission Environment Home with Family * ADLs Independent * Equipment None * List name and contact numbers for known caregivers / representatives who currently or will assist patient after discharge: Dee Pendleton, mother, * Verbal permission to speak to the caregivers and representatives has been obtained from the patient. Yes * Community resources currently utilized None * Additional services required to return to the preadmission environment? Yes * Can the patient safely return to the preadmission environment? Yes * Has this patient been hospitalized within the prior 30 days at any hospital? Yes Coverage Notice Reviewer: [id number] - Cecelia Frost Notice Issued Date-Time: 03/29/2020 16:25 Notice Type: Patient Choice Letter Notice Delivered To: Patient Relationship to Patient: Self Telescope Operator Name: Delivery Method: HAND - Hand Delivered Yi Days: Prior Verbal Notification: Recipient Understood Notice: Yes Recipient Signature: Yes Med Rec Note Co-signed by Attending: Coverage Notice Comment: Last DP export: 03/29/20 4:42 p Patient Name: MICHEAL PENDLETON Page 53267 at 1310 All edits/amendments must be made on the electronic document DICTATION DATE: 03/30/201308 TOWERMAN: MIKAYLA 03/30/20 1309 RPT#: [id number] DC DATE: STATUS: REG [facility] [address] [place] [address] END OF REPORT
--- NOTE | 2020-03-30 16:04 | NUR ---
DISCHARGED PATIENT HOME WITH MOTHER VIA WHEELCHAIR. DEMONSTRATED AND INSTRUCTED PATIENT AND MOTHER ON WET TO DRY DRESSING CHANGE OF ABDOMEN, DEMONSTRATED AND VERBALIZED UNDERSTANDING. GAVE SUPPLIES TO FAMILY PER DR. NICHOLSON. DISCONTINUED IV, CATHETER TIP INTACT. DENIES ANYTHING FURTHER.
--- NOTE | 2020-03-30 19:04 | MORECARE ---
CASE MANAGEMENT DISCHARGE SUMMARY PATIENT: MICHEAL PENDLETON UNIT: [id number] ADM DATE: 03/29/20 AGE: 19 : [birth year] SEX: F ROOM/BED: AUTHOR: ROSSDOC PHYSICIAN: REFERRING PHYSICIAN: DAMION NICHOLSON MD DATE OF SERVICE: 03/30/20 Discharge Plan Patient Name: MICHEAL PENDLETON Facility: [facility]:[place] : 2000 Planned Disposition: Home with Home Health Anticipated Discharge Date: 03/30/20 Discharge Date: 03/30/2020 Expected LOS: 1 Initial Reviewer: [email or web address] Initial Review Date: 03/29/2020 Generated: 03/30/20 8:03 pm Comments DCP- Discharge Planning Updated by [email or web address]: Amalia Acosta on 03/30/20 5:[address] LATE ENTRY 1330 CM SPOKE W/ FLAKO AT [facility]. THERE IS AN ISSUE RELATED TO THE PATIENT'S INSURANCE. THE PATIENT'S MOTHER HAD CALLED THE [facility] OFFICE. [facility] CONFIRMED THE PATIENT HAD MEDICAID,THE LIMITED [place] [employer] [facility] HAD BEEN CHANGED TO MEDICAID. [facility] SENT THE INFORMATION TO THE PATIENT'S PHONE. DARA IN [employer] HAD SPOKEN W/ FLAKO AT [facility] AND FINN. CM DISCUSSED WITH THE PATIENT. SHE STATES SHE IS GOING HOME TO HER INFANT REGARDLESS. GERALD ADVISED THE PRIMARY NURSE AND THE VICE PRESIDENT TAX. DR NICHOLSON WAS NOTIFIED. THE PRIMARY NURSE GATHERED SUPPLIES AND INSTRUCTED THE PATIENT'S MOTHER, WHO WAS AT THE BEDSIDE. FLAKO FROM [facility] CALLED AND SAID THEY WOULD F/U WITH THE PATIENT THURSDAY. GERALD HAD FAXED THE DISCHARGE SUMMARY AND DISCHARGE ORDERS EARLY IN THE DAY. PATIENT WAS DISCHARGED TO HOME W/ HER MOTHER PROVIDING TRANSPORTATION. DCP- Discharge Planning Updated by [id number]: Amalia Acosta on 03/30/20 12:[address] 0830 FLAKO FROM [facility] CALLED THIS AM. THE PATIENT'S INSURANCE CHECK STATES INSURANCE WAS TERMED SINCE JANUARY. TC TO DARA IN [employer]. DARA STATES HE WILL CHECK. HE DID FIND THE INSURANCE TERM. HE WILL CHECK DHS. GERALD SPOKE WITH THE PRIMARY NURSE TO ADVISE OF INSURANCE ISSUE. SHE WILL ADVISE THE PATIENT. 1130 TC TO MED DATA. DARA HAS NOT CLARIFIED AT PRESENT. HE WILL CHECK W/ DHS. 1300 GERALD SPOKE PERSONALLY TO DARA WITH MED [employer]. HE STILL HAS NOT CLARIFIED THE INSURANCE ISSUE. HE STATES HE WILL FOLLOW UP. DCP- Discharge Planning Updated by [id number]: Cecelia Forst on 03/29/20 4:[address] Patient Name: MICHEAL PENDLETON Admission Status: Elective Accout number: [id number] Admission Date: 03-29-2020 : 2000 Admission Diagnosis: Attending: Damion Nicholson Current LOS: 1 Anticipated DC Date: 03-30-2020 Planned Disposition: Home with Home Health Primary Insurance: MEDICAID [place] Discharge Planning Comments: CM met with patient to discuss discharge planning / needs. Dr. Nicholson has ordered Home [facility] for BID wound care with anticipated discharge to home tomorrow. Patient states her plan is to discharge to home where she lives with her mom and her 16 yo brother. States the home environment is safe. States her mom will transport her home upon discharge. States her mom is willing to learn how to do the wound care. Patient signed FRANKIE for [employer] [facility], [employer] [facility], [facility], and [employer] [facility] [employer]. Denies any other discharge planning needs at this time. CM called and spoke with Nayla at [facility]. Nayla states they are not able to accept patient until Thursday or Thursday. CM called and spoke with Sameer at [facility]. Sameer stated they would not be able to accept patient until Thursday or Thursday. CM called and spoke with Yamileth at [facility]. Yamileth stated they would not be able to accept patient until Thursday. GERALD called [facility] and spoke with Kenton Vega. Kenton stated he thought agency would be able to admit patient tomorrow afternoon, but he would need to check with Flako first. GERALD gave Kenton DUARTE's phone number to call tomorrow morning with confirmation. CM faxed orders and copy of records as requested. GERALD gave verbal report to GERALD Lemus, for follow up tomorrow in my absence. CM informed patient on status of referral. Patient verbalized understanding. CM will continue to follow and assist as needed with discharge planning needs. Ampoule Inspector: Cecelia Frost DCPIA - Discharge Planning Initial Assessment Updated by [id number]: Cecelia Frost on 03/29/20 5:26 pm * Is the patient Alert and Oriented? Yes * How many steps to enter\exit or inside your home? * PCP Dr. Miranda * [facility]acy [address] * Preadmission Environment Home with Family * ADLs Independent * Equipment None * List name and contact numbers for known caregivers / representatives who currently or will assist patient after discharge: Dee Pendleton, mother, * Verbal permission to speak to the caregivers and representatives has been obtained from the patient. Yes * Community resources currently utilized None * Additional services required to return to the preadmission environment? Yes * Can the patient safely return to the preadmission environment? Yes * Has this patient been hospitalized within the prior 30 days at any hospital? Yes Coverage Notice Reviewer: [id number] Amanda Frost Notice Issued Date-Time: 03/29/2020 16:25 Notice Type: Patient Choice Letter Notice Delivered To: Patient Relationship to Patient: Self Data Keyer Name: Delivery Method: HAND - Hand Delivered Yi Days: Prior Verbal Notification: Recipient Understood Notice: Yes Recipient Signature: Yes Med Rec Note Co-signed by Attending: Coverage Notice Comment: Last DP export: 03/30/20 12:10 p Patient Name: MICHEAL PENDLETON Page [id number] at 1904 All edits/amendments must be made on the electronic document DICTATION DATE: 03/30/201902 COGNOS LEAD: MIKAYLA 03/30/201902 RPT#: [id number] DC DATE:03/30/20 STATUS: [facility] [address] [place] [address] END OF REPORT
--- NOTE | 2020-04-02 09:09 | MORECARE ---
CASE MANAGEMENT DISCHARGE SUMMARY PATIENT: MICHEAL PENDLETON UNIT: [id number] ADM DATE: 03/29/20 AGE: 19 : [birth year] SEX: F ROOM/BED: AUTHOR: ROSSDOC PHYSICIAN: REFERRING PHYSICIAN: DAMION NICHOLSON MD DATE OF SERVICE: 04/02/20 Discharge Plan Patient Name: MICHEAL PENDLETON Facility: [facility]:[place] : 2000 Planned Disposition: Home with Home Health Anticipated Discharge Date: 03/30/20 Discharge Date: 03/30/2020 Expected LOS: 1 Initial Reviewer: [email or web address] Initial Review Date: 03/29/2020 Generated: 04/02/20 10:08 am Comments DCP- Discharge Planning Updated by [email or web address]: Amalia Acosta on 03/30/20 5:[address] LATE ENTRY 1330 CM SPOKE W/ FLAKO AT CARE . THERE IS AN ISSUE RELATED TO THE PATIENT'S INSURANCE. THE PATIENT'S MOTHER HAD CALLED THE [facility] OFFICE. [facility] CONFIRMED THE PATIENT HAD MEDICAID,THE LIMITED [place] [facility] HAD BEEN CHANGED TO MEDICAID. [facility] SENT THE INFORMATION TO THE PATIENT'S PHONE. DARA IN [employer] HAD SPOKEN W/ FLAKO AT [facility]. CM DISCUSSED WITH THE PATIENT. SHE STATES SHE IS GOING HOME TO HER INFANT REGARDLESS. GERALD ADVISED THE PRIMARY NURSE AND THE HOB GRINDER. DR NICHOLSON WAS NOTIFIED. THE PRIMARY NURSE GATHERED SUPPLIES AND INSTRUCTED THE PATIENT'S MOTHER, WHO WAS AT THE BEDSIDE. FLAKO FROM [facility] CALLED AND SAID THEY WOULD F/U WITH THE PATIENT THURSDAY. GERALD HAD FAXED THE DISCHARGE SUMMARY AND DISCHARGE ORDERS EARLY IN THE DAY. PATIENT WAS DISCHARGED TO HOME W/ HER MOTHER PROVIDING TRANSPORTATION. DCP- Discharge Planning Updated by [id number]: Amalia Acosta on 03/30/20 12:[address] 0830 FLAKO FROM [facility] CALLED THIS AM. THE PATIENT'S INSURANCE CHECK STATES INSURANCE WAS TERMED SINCE JANUARY. TC TO DARA IN [employer]. DARA STATES HE WILL CHECK. HE DID FIND THE INSURANCE TERM. HE WILL CHECK DHS. GERALD SPOKE WITH THE PRIMARY NURSE TO ADVISE OF INSURANCE ISSUE. SHE WILL ADVISE THE PATIENT. 1130 TC TO [employer]. DARA HAS NOT CLARIFIED AT PRESENT. HE WILL CHECK W/ DHS. 1300 GERALD SPOKE PERSONALLY TO DARA WITH [employer]. HE STILL HAS NOT CLARIFIED THE INSURANCE ISSUE. HE STATES HE WILL FOLLOW UP. DCP- Discharge Planning Updated by [id number]: Cecelia Frost on 03/29/20 4:[address] Patient Name: MICHEAL PENDLETON Admission Status: Elective Accout number: [id number] Admission Date: 03-29-2020 : 2000 Admission Diagnosis: Attending: Damion Nicholson Current LOS: 1 Anticipated DC Date: 03-30-2020 Planned Disposition: Home with Home Health Primary Insurance: [place]ID [place] Discharge Planning Comments: CM met with patient to discuss discharge planning / needs. Dr. Nicholson has ordered Home [facility] for BID wound care with anticipated discharge to home tomorrow. Patient states her plan is to discharge to home where she lives with her mom and her 16 yo brother. States the home environment is safe. States her mom will transport her home upon discharge. States her mom is willing to learn how to do the wound care. Patient signed FRANKIE for [facility], [facility], [facility], and [facility]. Denies any other discharge planning needs at this time. CM called and spoke with N[facility]la at [facility]. Nayla states they are not able to accept patient until Thursday or Thursday. CM called and spoke with Sameer at [facility]. Sameer stated they would not be able to accept patient until Thursday or Thursday. CM called and spoke with Yamileth at [facility]. Yamileth stated they would not be able to accept patient until Thursday. GERALD called [facility] and spoke with Kenton Vega. Kenton stated he thought agency would be able to admit patient tomorrow afternoon, but he would need to check with Flako first. GERALD gave Kenton DUARTE's phone number to call tomorrow morning with confirmation. CM faxed orders and copy of records as requested. GERALD gave verbal report to GERALD Lemus, for follow up tomorrow in my absence. CM informed patient on status of referral. Patient verbalized understanding. CM will continue to follow and assist as needed with discharge planning needs. Data Processing Operator: Cecelia Frost DCPIA - Discharge Planning Initial Assessment Updated by [email or web address]: Cecelia Frost on 03/29/20 5:26 pm * Is the patient Alert and Oriented? Yes * How many steps to enter\exit or inside your home? * PCP Dr. Miranda * [facility] * Preadmission Environment Home with Family * ADLs Independent * Equipment None * List name and contact numbers for known caregivers / representatives who currently or will assist patient after discharge: Dee Pendleton, mother, * Verbal permission to speak to the caregivers and representatives has been obtained from the patient. Yes * Community resources currently utilized None * Additional services required to return to the preadmission environment? Yes * Can the patient safely return to the preadmission environment? Yes * Has this patient been hospitalized within the prior 30 days at any hospital? Yes Coverage Notice Reviewer: [id number] Amanda Frost Notice Issued Date-Time: 03/29/2020 16:25 Notice Type: Patient Choice Letter Notice Delivered To: Patient Relationship to Patient: Self Bench Machine Operator Name: Delivery Method: HAND - Hand Delivered Yi Days: Prior Verbal Notification: Recipient Understood Notice: Yes Recipient Signature: Yes Med Rec Note Co-signed by Attending: Coverage Notice Comment: Last DP export: 03/30/20 6:04 p Patient Name: MICHEAL PENDLETON Page [id number] at 0909 All edits/amendments must be made on the electronic document DICTATION DATE: 04/02/20907 WEIGHT CONTROL LECTURER: MIKAYLA 04/02/20907 RPT#: [id number] DC DATE:03/30/20 STATUS: [address] [address] END OF REPORT
== END 2020-03-30 16:11 | disposition home or self-care (01) ==
LOC: D.OPS 09:04 → D.WS 13:58 → D.MS 16:09 → D.OPS 03-30 16:11
PROVIDERS: ATTEND Obstetrics & Gynecology
DX: T81.40XD Infection following a procedure, unspecified, subsequent encounter (principal)